=== PATIENT | female | born 1955 | race African-American/Black ===

== ENCOUNTER → 2017-05-31 | Outpatient (CLI) | payer BC ==
[~2017-05-31] MED LIST: BAYER ASPIRIN; CARV25TA47; FURO40TA5; KLOR CON; LOSA100T3; SIMV40TA5
== END | disposition home or self-care (01) ==
LOC: RAD 10:52
PROVIDERS: ATTEND Specialist
DX: M79.641 Pain in right hand (principal)
CPT/HCPCS: 73130

== ENCOUNTER 2017-12-02 04:40 | Inpatient (IN) | payer BC ==
[~2017-12-02] VITALS: Ht 162.6 cm; Wt 101.8 kg
[2017-12-02] MEDS ORDERED: FAMOTIDINE 20MG/2ML VIAL IV STA (06:30)
[2017-12-02] MEDS ORDERED: SODIUM CHLORIDE 0.9% 1,000 ML IV ONE (06:30)
[2017-12-02] MEDS ORDERED: MORPHINE SULFATE 4 MG/ML CPJ (NOT FOR IM USE) IV STA (06:30)
[2017-12-02] MEDS ORDERED: ONDANSETRON HCL 4MG/2ML VIAL IV STA (06:30)
[2017-12-02 06:56] LABS: CLARITY URINE CLEAR (CLEAR); COLOR URINE DARK YELLOW (YELLOW); KETONES URINE NEGATIVE (NEGATIVE); LEUKOCYTE ESTERASE URINE NEGATIVE (NEGATIVE); NITRITE URINE NEGATIVE (NEGATIVE); OCCULT BLOOD URINE NEGATIVE (NEGATIVE); PROTEIN URINE TRACE (NEGATIVE); SPECIFIC GRAVITY URINE 1.025 (1.005-1.030)
[2017-12-02 07:00] LABS: CHLORIDE 108 mEq/L (98-107)
[2017-12-02 07:01] LABS: HEMATOCRIT. 40.2 % (36.0-48.0); HEMOGLOBIN. 13.2 g/dL (12.0-16.0); MEAN CORPUSCULAR HEMOGLOBIN 29.2 pg (28.0-32.0); MEAN CORPUSCULAR VOLUME 88.9 fL (81.0-99.0); MEAN PLATELET VOLUME 9.9 fl (7.4-10.4); PLATELET 160 x1000/uL (130-400); RED BLOOD CELL COUNT 4.53 mill/uL (4.2-5.4)
[2017-12-02 07:03] LABS: INR 1.3; PARTIAL THROMBOPLASTIN TIME 25.4 sec (23.4-31.0)
[2017-12-02 07:42] LABS: PLATELET ESTIMATE NORMAL
[2017-12-02] MEDS ORDERED: PIPERACILLIN SODIUM/TAZOBACTAM 4.5 G in DEXT 5% WATER 100 ML IV ONE (14:17)
[2017-12-02] MEDS ORDERED: ONDANSETRON HCL 4MG/2ML VIAL IV PRN (15:00)
[2017-12-02] MEDS ORDERED: IPRATROPIUM/ALBUTEROL 0.5-3(2.5)MG/3ML NEB INH PRN (15:00)
[2017-12-02] MEDS ORDERED: NAPROXEN 500MG TABLET PO PRN (15:00)
[2017-12-02] MEDS ORDERED: DOCUSATE SODIUM 100MG CAPSULE PO PRN (15:00)
[2017-12-02] MEDS ORDERED: CLONIDINE 0.1MG TABLET PO PRN (15:00)
[2017-12-02 21:30] VITALS: BP 118/89
[2017-12-02 22:00] VITALS: BP 130/60
[2017-12-02 22:02] LABS: HEPATITIS B SURFACE ANTIGEN NEGATIVE
[2017-12-02 22:31] LABS: HEPATITIS B CORE AB IGM NEGATIVE
[2017-12-02 22:32] LABS: HEPATITIS A AB IGM NEGATIVE (NEGATIVE)
[2017-12-03] VITALS: BP 118/89
[2017-12-03] MEDS: ENOXAPARIN 30MG/0.3ML SYR SUBCUT SCH ×3 (00:23→22:28)
[2017-12-03] MEDS: SODIUM CHLORIDE 0.9% 1,000 ML IV SCH ×2 (00:23→11:25)
[2017-12-03] MEDS ORDERED: AMIO100T4 PO (01:04)
[2017-12-03] MEDS ORDERED: TAP5 MT (01:06)
[2017-12-03] MEDS ORDERED: OMEP40CA34 MT (01:06)
[2017-12-03] MEDS ORDERED: CARV25TA47 MT (01:07)
[2017-12-03] MEDS ORDERED: SACU1TAB7 MT (01:08)
[2017-12-03] MEDS ORDERED: PRAV80TA21 MT (01:09)
[2017-12-03] MEDS ORDERED: vitamind3 (01:11)
[2017-12-03] MEDS: PIPERACILLIN/TAZ 3.375G PREMIX 50 ML IV SCH ×2 (03:31→08:37)
[2017-12-03 04:00] VITALS: BP 106/61
[2017-12-03] MEDS ORDERED: OMEPRAZOLE 20MG CAPSULE EXTENDED RELEASE PO SCH (06:45)
[2017-12-03 07:14] LABS: HEMATOCRIT. 40.5 % (36.0-48.0); HEMOGLOBIN. 13.2 g/dL (12.0-16.0); MEAN CORPUSCULAR HEMOGLOBIN 28.9 pg (28.0-32.0); MEAN CORPUSCULAR VOLUME 88.7 fL (81.0-99.0); MEAN PLATELET VOLUME 10.2 fl (7.4-10.4); PLATELET 144 x1000/uL (130-400); RED BLOOD CELL COUNT 4.57 mill/uL (4.2-5.4); RED CELL DISTRIBUTION WIDTH 15.1 % (11.6-14.6)
[2017-12-03 08:00] VITALS: BP 93/66
[2017-12-03 08:03] LABS: CHLORIDE 109 mEq/L (98-107)
[2017-12-03 08:16] LABS: PHOSPHORUS 2.5 mg/dL (2.5-4.9)
[2017-12-03 08:17] LABS: LDL CHOLESTEROL 87 mg/dL (5-100)
[2017-12-03 08:19] LABS: HDL CHOLESTEROL 63 mg/dL (40-59)
[2017-12-03] MEDS: PANTOPRAZOLE SODIUM 40 MG/VIAL IV SCH (08:37)
[2017-12-03 12:00] VITALS: BP 91/50
[2017-12-03] MEDS ORDERED: IPRATROPIUM/ALBUTEROL 0.5-3(2.5)MG/3ML NEB HHN PRN (13:45)
[2017-12-03] MEDS ORDERED: METRONIDAZOLE 500 MG PREMIX 100 ML IV SCH (15:00)
[2017-12-03 15:45] LABS: PLATELET ESTIMATE NORMAL
[2017-12-03 16:00] VITALS: BP 97/50
[2017-12-03] MEDS: LEVOFLOXACIN 500MG PREMIX 100 ML IV SCH (16:10)
[2017-12-03 20:00] VITALS: BP 138/68
[2017-12-03] MEDS: ACETYLCYSTEINE 100MG/ML 10% VIAL 4ML INH SCH (20:14)
[2017-12-03] MEDS: IPRATROPIUM/ALBUTEROL 0.5-3(2.5)MG/3ML NEB HHN SCH (20:14)
[2017-12-04] VITALS: BP 127/73
[2017-12-04] MEDS: METRONIDAZOLE 500 MG PREMIX 100 ML IV SCH ×3 (00:39→18:15)
[2017-12-04] MEDS: IPRATROPIUM/ALBUTEROL 0.5-3(2.5)MG/3ML NEB HHN SCH ×4 (01:13→20:38)
[2017-12-04 04:00] VITALS: BP 100/62
[2017-12-04] MEDS: ACETYLCYSTEINE 100MG/ML 10% VIAL 4ML INH SCH ×3 (06:00→20:38)
[2017-12-04 08:00] VITALS: BP 113/68
[2017-12-04] MEDS: PANTOPRAZOLE SODIUM 40 MG/VIAL IV SCH (09:26)
[2017-12-04] MEDS: ENOXAPARIN 30MG/0.3ML SYR SUBCUT SCH ×2 (09:27→21:10)
[2017-12-04 13:16] LABS: BASOPHILS % 0.9 % (0.0-2.0); EOSINOPHILS % 1.7 % (0.0-5.0); HEMATOCRIT. 42.2 % (36.0-48.0); HEMOGLOBIN. 13.7 g/dL (12.0-16.0); LYMPHOCYTES % 8.9 % (20.0-50.0); MEAN CORPUSCULAR VOLUME 89.1 fL (81.0-99.0); NEUTROPHILS % 80.5 % (40.0-76.0); PLATELET 133 x1000/uL (130-400); RED BLOOD CELL COUNT 4.74 mill/uL (4.2-5.4); RED CELL DISTRIBUTION WIDTH 15.5 % (11.6-14.6)
[2017-12-04] MEDS ORDERED: SODIUM BICARBONATE 4% (2.4MEQ) 5ML VIAL IV ONE (14:48)
[2017-12-04] MEDS ORDERED: LIDOCAINE HCL 1% 20ML VIAL (Pyxis) INJ ONE (14:49)
[2017-12-04 16:00] VITALS: BP 133/67
[2017-12-04] MEDS: LEVOFLOXACIN 500MG PREMIX 100 ML IV SCH (16:51)
[2017-12-04 19:35] LABS: CHLORIDE 108 mEq/L (98-107)
[2017-12-04 19:41] LABS: LDL CHOLESTEROL 106 mg/dL (5-100)
[2017-12-04 19:42] LABS: HDL CHOLESTEROL 45 mg/dL (40-59)
[2017-12-04 20:00] VITALS: BP 136/72
[2017-12-05] VITALS: BP 118/67
[2017-12-05] MEDS: METRONIDAZOLE 500 MG PREMIX 100 ML IV SCH ×3 (01:25→18:14)
[2017-12-05] MEDS: IPRATROPIUM/ALBUTEROL 0.5-3(2.5)MG/3ML NEB HHN SCH ×3 (02:12→20:48)
[2017-12-05] MEDS: SODIUM CHLORIDE 0.9% 1,000 ML IV SCH ×2 (03:52→23:52)
[2017-12-05 04:00] VITALS: BP 122/71
[2017-12-05 06:27] LABS: CHLORIDE 111 mEq/L (98-107)
[2017-12-05 06:29] LABS: HEMATOCRIT. 38.1 % (36.0-48.0); HEMOGLOBIN. 12.3 g/dL (12.0-16.0); MEAN CORPUSCULAR HEMOGLOBIN 28.5 pg (28.0-32.0); MEAN CORPUSCULAR VOLUME 88.2 fL (81.0-99.0); MEAN PLATELET VOLUME 10.5 fl (7.4-10.4); PLATELET 128 x1000/uL (130-400); RED BLOOD CELL COUNT 4.32 mill/uL (4.2-5.4); RED CELL DISTRIBUTION WIDTH 15.2 % (11.6-14.6)
[2017-12-05 06:34] LABS: PHOSPHORUS 1.9 mg/dL (2.5-4.9)
[2017-12-05] MEDS: ACETYLCYSTEINE 100MG/ML 10% VIAL 4ML INH SCH (07:40)
[2017-12-05 08:00] VITALS: BP 116/65
[2017-12-05] MEDS: ENOXAPARIN 30MG/0.3ML SYR SUBCUT SCH ×2 (09:42→21:37)
[2017-12-05] MEDS: PANTOPRAZOLE SODIUM 40 MG/VIAL IV SCH (09:42)
[2017-12-05 12:00] VITALS: BP 134/80
[2017-12-05] MEDS: LOSARTAN POTASSIUM 100 MG TABLET PO SCH (14:23)
[2017-12-05] MEDS: AMIODARONE HCL 200 MG TABLET PO SCH (14:23)
[2017-12-05 14:25] LABS: PLATELET ESTIMATE SLIGHTLY DECREASED
[2017-12-05] MEDS: CARVEDILOL 25MG TABLET PO SCH ×2 (14:25→21:38)
[2017-12-05] MEDS: FUROSEMIDE 20MG TABLET PO SCH ×2 (14:26→21:37)
[2017-12-05 16:00] VITALS: BP 116/65
[2017-12-05] MEDS: LEVOFLOXACIN 500MG PREMIX 100 ML IV SCH (16:48)
[2017-12-05 20:00] VITALS: BP 127/66
[2017-12-06] VITALS: BP 119/71
[2017-12-06] MEDS: METRONIDAZOLE 500 MG PREMIX 100 ML IV SCH (02:27)
[2017-12-06] MEDS: IPRATROPIUM/ALBUTEROL 0.5-3(2.5)MG/3ML NEB HHN SCH ×3 (03:00→14:35)
[2017-12-06 04:00] VITALS: BP 110/66
[2017-12-06 06:21] LABS: HEMATOCRIT. 35.8 % (36.0-48.0); HEMOGLOBIN. 11.9 g/dL (12.0-16.0); MEAN CORPUSCULAR HEMOGLOBIN 29.2 pg (28.0-32.0); MEAN CORPUSCULAR VOLUME 87.9 fL (81.0-99.0); MEAN PLATELET VOLUME 11.9 fl (7.4-10.4); PLATELET 139 x1000/uL (130-400); RED BLOOD CELL COUNT 4.07 mill/uL (4.2-5.4); RED CELL DISTRIBUTION WIDTH 15.1 % (11.6-14.6)
[2017-12-06 06:28] LABS: CHLORIDE 108 mEq/L (98-107)
[2017-12-06] MEDS: FUROSEMIDE 20MG TABLET PO SCH (06:30)
[2017-12-06 08:00] VITALS: BP 125/80
[2017-12-06] MEDS ORDERED: METRONIDAZOLE 500MG TABLET PO SCH (08:00)
[2017-12-06] MEDS: ACETYLCYSTEINE 100MG/ML 10% VIAL 4ML INH SCH (08:11)
[2017-12-06] MEDS: CARVEDILOL 25MG TABLET PO SCH (08:32)
[2017-12-06] MEDS: AMIODARONE HCL 200 MG TABLET PO SCH (08:32)
[2017-12-06] MEDS: LOSARTAN POTASSIUM 100 MG TABLET PO SCH (08:32)
[2017-12-06] MEDS: ENOXAPARIN 30MG/0.3ML SYR SUBCUT SCH (08:33)
[2017-12-06] MEDS ORDERED: FAMOTIDINE 20MG TABLET PO SCH (09:00)
[2017-12-06] MEDS: POTASSIUM CHLORIDE 20MEQ TABLET SR PO NR ×2 (10:00→11:05)
[2017-12-06] MEDS ORDERED: LEVOFLOXACIN 500MG TABLET PO SCH (11:00)
[2017-12-06 16:29] LABS: PLATELET ESTIMATE NORMAL
== END 2017-12-06 16:20 | disposition home or self-care (01) | DRG 871 ==
LOC: ER 04:40 → SUPCPDRO 14:10 → OBSVTOIN 14:21 → 5WST 14:21 → ENRESERV 19:32
PROVIDERS: ADMIT Family Medicine Adult Medicine; ATTEND Family Medicine Adult Medicine
PROC: 02HV33Z Insertion of Infusion Device into Superior Vena Cava, Percutaneous Approach (ICD-10-PCS; principal; 2017-12-04)
PROC: B5181ZA Fluoroscopy of Superior Vena Cava using Low Osmolar Contrast, Guidance (ICD-10-PCS; 2017-12-04)
PROC: B548ZZA Ultrasonography of Superior Vena Cava, Guidance (ICD-10-PCS; 2017-12-04)
DX: A41.9 Sepsis, unspecified organism (principal); J96.00 Acute respiratory failure, unspecified whether with hypoxia or hypercapnia; J69.0 Pneumonitis due to inhalation of food and vomit; I42.0 Dilated cardiomyopathy; I50.20 Unspecified systolic (congestive) heart failure; K80.10 Calculus of gallbladder with chronic cholecystitis without obstruction; I11.0 Hypertensive heart disease with heart failure; E66.01 Morbid (severe) obesity due to excess calories; E78.5 Hyperlipidemia, unspecified; I48.0 Paroxysmal atrial fibrillation; K44.9 Diaphragmatic hernia without obstruction or gangrene; K57.30 Diverticulosis of large intestine without perforation or abscess without bleeding; R74.0 Nonspecific elevation of levels of transaminase and lactic acid dehydrogenase [LDH]; K82.8 Other specified diseases of gallbladder; Z82.49 Family history of ischemic heart disease and other diseases of the circulatory system; Z90.710 Acquired absence of both cervix and uterus; Z88.6 Allergy status to analgesic agent; Z88.5 Allergy status to narcotic agent; Z98.84 Bariatric surgery status; Z95.810 Presence of automatic (implantable) cardiac defibrillator; Z68.38 Body mass index [BMI] 38.0-38.9, adult; Z79.899 Other long term (current) drug therapy
CPT/HCPCS: 36415; 36569; 71045; 74176; 76705; 76937; 77001; 78227; 80048; 80053; 80061; 80076; 81003; 82248; 83690; 83735; 84100; 85025; 85610; 85730; 86705; 86709; 86803; 87340; 93005; 96365; 96375; 99285; A9537; C1725; C9113; J1650; J1956; J2270; J2405; J2543; J3490; J7030; J7040; J7060; J7608; J7620